=== PATIENT | male | born 1970 | race Caucasian/White ===

== ENCOUNTER 2016-10-18 01:26 | Emergency (ER) | payer BC ==
[2016-10-18 01:40] VITALS: TEMP 97.8; BMI 26.6
--- NOTE | 2016-10-18 02:31 | PDOC ---
History of Present Illness - General Chief Complaint: Laceration Stated Complaint: INJURY Time Seen by Provider: 10/18/16 01:41 History Source: Spouse - History of Present Illness Initial Comments: 10/18/16 02:53 45-year-old male with no medical history presents to the emergency department with his whom states Yuri was complaining of a mid forehead vertical laceration. Patient was at a celebration this evening and had alcohol. Patient's family states as Yuri was walking up a flight of stairs, he tripped and fell, striking his forehead against a metal banister which caused the laceration. Timing/Duration: reports: 1 hour Associated Symptoms: denies: fever/chills, loss of consciousness, muscle spasms , nausea/vomiting, paresthesia Past History - Past Medical History Allergies/Adverse Reactions: Allergies Allergy/AdvReac Type Severity Reaction Status Date / Time Penicillins Allergy Verified 10/18/16 01:35 Home Medications: Ambulatory Orders NK [No Known Home Medication] 10/18/16 Other medical history: Denies - Immunization History Immunization Up to Date: No - Psycho/Social/Smoking Cessation Hx Anxiety: No Suicidal Ideation: No Smoking History: Current every day smoker Have you smoked in the past 12 months: Yes Number of Cigarettes Smoked Daily: 20 Information on smoking cessation initiated: No Hx Alcohol Use: Yes Drug/Substance Use Hx: No Substance Use Type: Alcohol Review of Systems - Review of Systems Able to Perform ROS?: Yes Comments:: 10/18/16 02:52 CONSTITUTIONAL: Absent: fever, chills, diaphoresis, generalized weakness, malaise, loss of appetite HEENT: 8cm vertical mid forehead lac Absent: rhinorrhea, nasal congestion, throat pain, throat swelling, difficulty swallowing, mouth swelling, ear pain, eye pain, visual Changes CARDIOVASCULAR: Absent: chest pain, loss of consciousness, palpitations, irregular heart rate, peripheral edema RESPIRATORY: Absent: cough, shortness of breath, dyspnea with exertion, orthopnea, wheezing, stridor, hemoptysis GASTROINTESTINAL: Absent: abdominal pain, abdominal distension, nausea, vomiting, diarrhea, constipation, melena, hematochezia GENITOURINARY: Absent: dysuria, frequency, urgency, hesitancy, hematuria, flank pain, genital pain MUSCULOSKELETAL: Absent: myalgia, arthralgia, joint swelling SKIN: Absent: rash, itching, pallor HEMATOLOGIC/IMMUNOLOGIC: Absent: easy bleeding, easy bruising, lymphadenopathy, frequent infections ENDOCRINE: Absent: unexplained weight gain, unexplained weight loss, heat intolerance, cold intolerance NEUROLOGIC: Absent: headache, focal weakness or paresthesias, dizziness, unsteady gait, seizure, mental status changes, bladder or bowel incontinence PSYCHIATRIC: Absent: anxiety, depression, suicidal or homicidal ideation, hallucinations. Is the patient limited Swedish proficient: No *Physical Exam - Vital Signs Last Vital Signs Temp Pulse Resp BP Pulse Ox 97.8 F 71 22 104/59 98 10/18/16 01:32 10/18/16 01:32 10/18/16 01:32 10/18/16 01:32 10/18/16 01:32 - Physical Exam Comments: 10/18/16 02:53 GENERAL: Well developed, well nourished. Awake and alert. No acute distress. HEENT: 8cm vertical mid forehead lac Normocephalic, atraumatic. PERRLA, EOMI. No conjunctival pallor. Sclera are non- icteric. Moist mucous membranes. Oropharynx is clear. NECK: Supple. Full ROM. No JVD. Carotid pulses 2+ and symmetric, without bruits. No thyromegaly. No lymphadenopathy. CARDIOVASCULAR: Regular rate and rhythm. No murmurs, rubs, or gallops. Distal pulses are 2+ and symmetric. PULMONARY: No evidence of respiratory distress. Lungs clear to auscultation bilaterally. No wheezing, rales or rhonchi. ABDOMINAL: Soft. Non-tender. Non-distended. No rebound or guarding. No organomegaly. Normoactive bowel sounds. MUSCULOSKELETAL Normal range of motion at all joints. No bony deformities or tenderness. No CVA tenderness. EXTREMITIES: No cyanosis. No clubbing. No edema. No calf tenderness. SKIN: Warm and dry. Normal capillary refill. No rashes. No jaundice. NEUROLOGICAL: Alert, awake, appropriate. Cranial nerves 2-12 intact. No deficits to light touch and temperature in face, upper extremities and lower extremities. No motor deficits in the in face, upper extremities and lower extremities. Normoreflexic in the upper and lower extremities. Normal speech. Toes are down- going bilaterally. Gait is normal without ataxia. PSYCHIATRIC: Cooperative. Good eye contact. Appropriate mood and affect. ED Treatment Course - LABORATORY CBC & Chemistry Diagram: 10/18/16 05:41 - RADIOLOGY Radiology Studies Ordered: Category Date Time Status CERVICAL SPINE CT W/O CONTR [CT] Stat CT Scan 10/18/16 02:[address] WITHOUT CONTRAST [CT] Stat CT Scan 10/18/16 02:29 Ordered Radiograph Interpretation: 10/18/16 04:[address] without contrast Impression: Left frontal scalp laceration without skull fracture or intracranial hemorrhage. Study description: Cervical spine CT w/o contr Impression: No fracture. Progress Note - Progress Note Progress Note: Mid frontal forehead 8cm vertical lac/full thickness Betadine prep 1%lidocaine; 9cc NS copious irrigation Betadine reprep (10) 4.0 vicryl sq (18) 5.0 nylon simple interrupted Telfa kerlix 0700hrs: Sign out to ALESSANDRA Perez. Reassess *DC/Admit/Observation/Transfer Diagnosis at time of Disposition: Alcohol intoxication Qualifiers: Complication of substance-induced condition: uncomplicated Qualified Code(s): F10.920 - Alcohol use, unspecified with intoxication, uncomplicated Laceration of forehead Qualifiers: Encounter type: initial encounter Qualified Code(s): S01.81XA - Laceration without foreign body of other part of head, initial encounter - Discharge Dispostion Disposition: HOME Condition at time of disposition: Improved - Referrals Referrals: STAFF,NOT ON [Non Staff, Medical] - - Patient Instructions Printed Discharge Instructions: DI for Laceration Repair Additional Instructions: Please return in 5-7 days for suture removal. Please keep area clean and dry. If area becomes red, swollen or starts to drain fluid please return to ED as this may be a sign of an infection.
[2016-10-18] MEDS ORDERED: OXYCODONE/APAP 5/325MG COMBO TABLET PO ONE (03:18)
[2016-10-18] MEDS ORDERED: OXYCODONE/APAP 5/325MG COMBO TABLET ONE (03:24)
[2016-10-18] MEDS ORDERED: LIDOCAINE HCL 2% (20ML MULTI-DOSE VIAL) NR ONE (04:14)
[2016-10-18] MEDS ORDERED: FOLIC ACID INJECTION - 1 MG, THIAMINE HCL 100 MG, MULTIVIT INJECTION ADULT 10 ML in SOD... IVPB ONE (05:23)
[2016-10-18 06:42] LABS: ALBUMIN 3.8 g/dl (3.4-5.0); ALK PHOS 90 U/L (45-117); ANION GAP 13 (8-16); BILIRUBIN,TOTAL 0.3 mg/dL (0.2-1.0); CALCIUM 8.8 mg/dL (8.5-10.1); CO2 28 mmol/L (21-32); CREATININE 0.8 mg/dL (0.7-1.3); GLUCOSE,RANDOM 97 mg/dL (74-106); SGOT/AST 28 U/L (15-37); SGPT/ALT 29 U/L (12-78); TOT PROT 6.9 g/dl (6.4-8.2)
--- NOTE | 2016-10-18 07:13 | PDOC ---
*Physical Exam - Vital Signs Last Vital Signs Temp Pulse Resp BP Pulse Ox 97.8 F 71 22 104/59 98 10/18/16 01:32 10/18/16 01:32 10/18/16 01:32 10/18/16 01:32 10/18/16 01:32 - Physical Exam General Appearance: Yes: Nourished HEENT: positive: TRA Neck: positive: Trachea midline. negative: Tender Respiratory/Chest: positive: Lungs Clear, Normal Breath Sounds. negative: Respiratory Distress Cardiovascular: positive: Regular Rhythm, Regular Rate, S1, S2. negative: Edema Musculoskeletal: positive: Normal Inspection. negative: CVA Tenderness, Vertebral Tenderness Extremity: positive: Normal Capillary Refill, Normal Inspection. negative: Swelling Integumentary: positive: Normal Color, Dry, Warm Neurologic: positive: Other (large vertical laceration to forehead several inches, to bone. ) ED Treatment Course - LABORATORY CBC & Chemistry Diagram: 10/18/16 05:41 - ADDITIONAL ORDERS Additional order review: Laboratory Results 10/18/16 10/18/16 05:41 05:41 Sodium 140 Potassium 3.6 Chloride 99 Carbon Dioxide 28 Anion Gap 13 BUN 5 L Creatinine 0.8 Creat Clearance w eGFR > 60 Random Glucose 97 Calcium 8.8 Total Bilirubin 0.3 AST 28 ALT 29 Alkaline Phosphatase 90 Total Protein 6.9 Albumin 3.8 Alcohol, Quantitative 205.5 H* Medical Decision Making - Medical Decision Making 10/18/16 07:09 45 yo male intoxicated here with forehead laceration after hit head on a pole. c /o laceration to forehead. on exam pt awake, but drowsy, large vertical laceration to forehead. EOMI, no cervical spine tenderness. plan ct head. c spine. labs observe until sober. lac repair. pt seen and examined in conjunction with GRADY Hall, agree with plan. cirilli *DC/Admit/Observation/Transfer Diagnosis at time of Disposition: Alcoholic intoxication, Laceration of forehead - Discharge Dispostion [facility]position[facility] Condition at time of disposition: Guarded
--- NOTE | 2016-10-18 07:25 | PDOC ---
*Physical Exam - Vital Signs Last Vital Signs Temp Pulse Resp BP Pulse Ox 97.8 F 71 22 104/59 98 10/18/16 01:32 10/18/16 01:32 10/18/16 01:32 10/18/16 01:32 10/18/16 01:32 ED Treatment Course - LABORATORY CBC & Chemistry Diagram: 10/18/16 05:41 - ADDITIONAL ORDERS Additional order review: Laboratory Results 10/18/16 10/18/16 05:41 05:41 Sodium 140 Potassium 3.6 Chloride 99 Carbon Dioxide 28 Anion Gap 13 BUN 5 L Creatinine 0.8 Creat Clearance w eGFR > 60 Random Glucose 97 Calcium 8.8 Total Bilirubin 0.3 AST 28 ALT 29 Alkaline Phosphatase 90 Total Protein 6.9 Albumin 3.8 Alcohol, Quantitative 205.5 H* Medical Decision Making - Medical Decision Making 10/18/16 07:24 Patient received in sign out from physician hospital clinic assistant beverly. Patient status post fall with laceration to his forehead which was repaired. As per signout patient had negative CT findings. Patient currently intoxicated and resting until he is stable to be discharged. Vital signs stable. Laboratory Tests 10/18/16 10/18/16 05:41 05:41 Potassium 3.6 Random Glucose 97 AST 28 ALT 29 Alcohol, Quantitative 205.5 H* 10/18/16 11:09 patient ambulatory but tired. Vitals stable. Discharge home with discharge instructions for suture removal. 10/18/16 11:13 *DC/Admit/Observation/Transfer Diagnosis at time of Disposition: Alcohol intoxication, Laceration of forehead - Discharge Dispostion Disposition: HOME Condition at time of disposition: Improved - Referrals Referrals: STAFF,NOT ON [Non Staff, Medical] - - Patient Instructions Printed Discharge Instructions: DI for Laceration Repair Additional Instructions: Please return in 5-7 days for suture removal. Please keep area clean and dry. If area becomes red, swollen or starts to drain fluid please return to ED as this may be a sign of an infection. - Post Discharge Activity
[2016-10-18 11:45] VITALS: BP 126/90; PULSE 85
== END 2016-10-18 11:45 | disposition home or self-care (01) ==
LOC: JER 01:26
PROC: 0JQ10ZZ Repair Face Subcutaneous Tissue and Fascia, Open Approach (ICD-10-PCS; principal; 2016-10-18)
DX: S01.81XA Laceration without foreign body of other part of head, initial encounter (principal); F10.120 Alcohol abuse with intoxication, uncomplicated; Y90.7 Blood alcohol level of 200-239 mg/100 ml; W10.8XXA Fall (on) (from) other stairs and steps, initial encounter; Y93.89 Activity, other specified; Y92.89 Other specified places as the place of occurrence of the external cause
CPT/HCPCS: 36415; 70450-TC; 72125-TC; 80053; 80307; 99284-25